=== PATIENT | female | born 1960 | race Caucasian/White ===

== ENCOUNTER 2022-12-11 11:02 | Inpatient (IN) | payer SELFPAY ==
[2022-12-11] MEDS ORDERED: NA CHLORIDE 0.9% 1,000 ML ONE (11:30)
[2022-12-11] MEDS ORDERED: ASPIRIN 81 MG CHEWABLE TABLET ONE (11:30)
[2022-12-11 11:39] LABS: Hematocrit 38.5 % (36.0-45.0); Lymphocytes % 48.9 % (15.3-44.8); MPV 7.8 fL (7.6-11.3); RBC Red Blood Cell Count 4.43 M/uL (3.86-4.86)
[2022-12-11 11:46] LABS: Specific Gravity < 1.005 (1.005-1.030); Urine Bilirubin NEGATIVE (Negative); Urine Blood Negative (Negative); Urine Clarity Clear (Clear); Urine Color Colorless (Yellow); Urine Glucose NEGATIVE (Negative); Urine Protein NEGATIVE (Negative); Urine Urobilinogen Normal (Normal); Urine pH 6.5 (5.0-7.0)
[2022-12-11 11:58] LABS: Albumin 3.5 g/dL (3.4-5.0); Bilirubin Direct 0.1 mg/dL (0-0.2); Bilirubin Total 0.4 mg/dL (0.2-1.0); Magnesium 2.2 mg/dL (1.6-2.4); Potassium 3.9 mEq/L (3.5-5.1); Protein, Total 7.3 g/dL (6.4-8.2); Troponin High Sensitivity 6.8 pg/mL (<58.9)
[2022-12-11] MEDS ORDERED: PANTOPRAZOLE 40 MG INJ ONE (12:11)
[2022-12-11] MEDS ORDERED: HEPARIN 5000 UNIT/ML 1 ML VIAL ONE (12:11)
[2022-12-11] MEDS ORDERED: METOPROLOL TAR 50 MG TAB ONE (12:11)
[2022-12-11] MEDS ORDERED: HEPARIN/D5W 25,000 UNIT/500 ML BAG IV ONE (12:11)
--- NOTE | 2022-12-11 12:39 | RAD REPORT ---
EXAM DESCRIPTION: RAD - Chest Single View - 12/11/2022 12:31 pm CLINICAL HISTORY: CHEST PAIN Chest pain. COMPARISON: No comparisons FINDINGS: Portable technique limits examination quality. The lungs are grossly clear. The heart is normal in size. No displaced fractures. IMPRESSION: No acute intrathoracic process suspected.
--- NOTE | 2022-12-11 12:51 | EDPHYS ---
Physician Documentation [facility] Name: Josephine Nichols Age: 62 yrs Sex: Female : 1960 Arrival Date: 12/11/2022 Time: 11:02 Bed 17 Private MD: ED Physician Darien White HPI: 12/11 12:47 This 62 yrs old Female presents to ER via Ambulatory with complaints of Chest prashant Pain. 12:47 The patient or guardian reports chest pain that is located primarily in the substernal prashant area. Onset: 2 day(s) ago. The pain does not radiate. Associated signs and symptoms: Pertinent positives: shortness of breath. The chest pain is described as aching, a pressure. Duration: The patient or guardian reports multiple episodes, that are intermittent. Modifying factors: The symptoms are alleviated by nothing. the symptoms are aggravated by exertion. Severity of pain: At its worst the pain was moderate in the emergency department the pain has improved moderately. The patient has not experienced similar symptoms in the past. Historical: - Allergies: 11:19 No Known Allergies; ld1 - Home Meds: 11:19 atorvastatin oral [Active]; ld1 - PMHx: 11:19 Hypertensive disorder; Hypercholesterolemia; Anxiety; ld1 - PSHx: 11:19 section; ld1 - Immunization history:: Adult Immunizations up to date, Client reports receiving the 2nd dose of the Covid vaccine. - Social history:: Smoking status: Patient denies any tobacco usage or history of. Patient/guardian denies using alcohol. ROS: 12:47 Constitutional: Negative for fever, chills, and weight loss, Eyes: Negative for injury, prasahnt pain, redness, and discharge, ENT: Negative for injury, pain, and discharge, Neck: Negative for injury, pain, and swelling, Respiratory: Negative for shortness of breath, cough, wheezing, and pleuritic chest pain, Abdomen/GI: Negative for abdominal pain, nausea, vomiting, diarrhea, and constipation, Back: Negative for injury and pain, : Negative for injury, bleeding, discharge, and swelling, MS/Extremity: Negative for injury and deformity, Skin: Negative for injury, rash, and discoloration, Neuro: Negative for headache, weakness, numbness, tingling, and seizure, Psych: Negative for depression, anxiety, suicide ideation, homicidal ideation, and hallucinations, Allergy/Immunology: Negative for hives, rash, and allergies, Endocrine: Negative for neck swelling, polydipsia, polyuria, polyphagia, and marked weight changes, Hematologic/Lymphatic: Negative for swollen nodes, abnormal bleeding, and unusual bruising. 12:47 Cardiovascular: Positive for chest pain. Exam: 12:47 Constitutional: This is a well developed, well nourished patient who is awake, alert, prashant and in no acute distress. Head/Face: Normocephalic, atraumatic. Eyes: Pupils equal round and reactive to light, extra-ocular motions intact. Lids and lashes normal. Conjunctiva and sclera are non-icteric and not injected. Cornea within normal limits. Periorbital areas with no swelling, redness, or edema. ENT: Nares patent. No nasal discharge, no septal abnormalities noted. Tympanic membranes are normal and external auditory canals are clear. Oropharynx with no redness, swelling, or masses, exudates, or evidence of obstruction, uvula midline. Mucous membranes moist. Neck: Trachea midline, no thyromegaly or masses palpated, and no cervical lymphadenopathy. Supple, full range of motion without nuchal rigidity, or vertebral point tenderness. No Meningismus. Chest/axilla: Normal chest wall appearance and motion. Nontender with no deformity. No lesions are appreciated. Cardiovascular: Regular rate and rhythm with a normal S1 and S2. No gallops, murmurs, or rubs. Normal PMI, no JVD. No pulse deficits. Respiratory: Lungs have equal breath sounds bilaterally, clear to auscultation and percussion. No rales, rhonchi or wheezes noted. No increased work of breathing, no retractions or nasal flaring. Abdomen/GI: Soft, non-tender, with normal bowel sounds. No distension or tympany. No guarding or rebound. No evidence of tenderness throughout. Back: No spinal tenderness. No costovertebral tenderness. Full range of motion. Skin: Warm, dry with normal turgor. Normal color with no rashes, no lesions, and no evidence of cellulitis. MS/ Extremity: Pulses equal, no cyanosis. Neurovascular intact. Full, normal range of motion. Neuro: Awake and alert, GCS 15, oriented to person, place, time, and situation. Cranial nerves II-XII grossly intact. Motor strength 5/5 in all extremities. Sensory grossly intact. Cerebellar exam normal. Normal gait. Psych: Awake, alert, with orientation to person, place and time. Behavior, mood, and affect are within normal limits. 12:47 ECG was reviewed by the Attending Physician. Vital Signs: 11:37 BP 148 / 72; Pulse 70; Resp 18; Temp 98.1(O); Pulse Ox 100% on R/A; Weight 74.84 kg; ld1 Height 5 ft. 6 in. ; Pain 8/10; 16:19 BP 137 / 77; Pulse 65; Resp 18; Pulse Ox 99% on R/A; ld1 11:37 Body Mass Index 26.63 (74.84 kg, 167.64 cm) ld1 11:37 Pain Scale: Adult ld1 MDM: 11:07 Patient medically screened. prashant 12:48 Differential diagnosis: abnormal EKG, acute myocardial infarction, acute pericarditis, prashant anxiety, coronary artery disease chest wall pain, Cholelithiasis costochondritis, esophagitis, gastritis, gastroesophageal reflux disease (GERD), hiatal hernia, pancreatitis, peptic ulcer disease, pericarditis, pneumonia, pneumothorax, pulmonary embolus, stable angina, thoracic aortic disection. HEART Score: History: Moderately Suspicious (1), ECG: Non specific repolarization disturbance / LBTB / PM (1), Age: > 45 and < 65 years (1), Risk Factors: > or = 3 Risk factors for atherosclerotic disease (2), [Hypercholesterolemia] [Hypertension] [+ Family HX] [Obesity] Troponin: < or = 1 x Normal Limit (0). The patient was given aspirin in the Emergency Department. SUJEY Risk Score: 1 - Three or more CAD risk factors, 1- Known CAD, 1 - ASA use in past 7 days. Data reviewed: vital signs, nurses notes, lab test result(s), EKG, radiologic studies, plain films. Management of patient was discussed with the following: Hospitalist: dr sandoval for dr arreola. 12/11 11:08 Order name: Basic Metabolic Panel; Complete Time: 12:21 [facility] 12/11 11:08 Order name: CBC with Diff; Complete Time: 12:21 [facility] 12/11 11:08 Order name: LFT's; Complete Time: 12:21 [facility] 12/11 11:08 Order name: Magnesium; Complete Time: 12:21 prashant 12/11 11:08 Order name: NT PRO-BNP; Complete Time: 12:21 prashant 12/11 11:08 Order name: PT-INR; Complete Time: 12:21 prashant 12/11 11:08 Order name: Troponin HS; Complete Time: 12:21 prashant 12/11 11:08 Order name: Lipase; Complete Time: 12:21 prashant 12/11 11:08 Order name: Urinalysis w/ reflexes; Complete Time: 12:21 prashant 12/11 12:08 Order name: Ptt, Activated; Complete Time: 12:21 ld1 12/11 15:47 Order name: Hemoglobin A1c EDMS 12/11 15:47 Order name: Lipid Profile EDMS 12/11 15:49 Order name: Magnesium EDMS 12/11 15:49 Order name: Phosphorus EDMS 12/11 15:49 Order name: T4 Free EDMS 12/11 15:49 Order name: Thyroid Stimulating Hormone EDMS 12/11 15:49 Order name: Urinalysis w/ reflexes EDMS 12/11 15:49 Order name: CBC with Automated Diff EDMS 12/11 15:49 Order name: CBC with Automated Diff EDMS 12/11 15:49 Order name: Comprehensive Metabolic Panel EDMS 12/11 15:49 Order name: Comprehensive Metabolic Panel EDMS 12/11 15:51 Order name: Troponin High Sensitivity EDMS 12/11 15:51 Order name: Troponin High Sensitivity EDMS 12/11 15:51 Order name: Troponin High Sensitivity EDMS 12/11 11:08 Order name: XRAY Chest (1 view) [facility] 12/11 15:51 Order name: Echo with Doppler EDMS 12/11 11:08 Order name: EKG; Complete Time: 11:09 [facility] 12/11 15:49 Order name: Heart Healthy EDMS 12/11 11:08 Order name: Cardiac monitoring; Complete Time: 11:19 prashant 12/11 11:08 Order name: EKG - Nurse/Tech; Complete Time: 11:19 prashant 12/11 11:08 Order name: IV Saline Lock; Complete Time: 11:37 prashant 12/11 11:08 Order name: Labs collected and sent; Complete Time: 11:37 prashant 12/11 11:08 Order name: O2 Per Protocol; Complete Time: 11:19 prashant 12/11 11:08 Order name: O2 Sat Monitoring; Complete Time: 11:19 prashant EC:47 Rate is 71 beats/min. Rhythm is regular. QRS [place] is Normal. CA interval is normal. QT prashant interval is normal. No Q waves. T waves are Normal. No ST changes noted. Clinical impression: NSR w/ Non-specific ST/T Changes and No evidence of ischemia. Interpreted by me. Reviewed by me. Administered Medications: 11:37 Drug: NS 0.9% IV 1000 ml Route: IV; Rate: 125 ml/hr; Site: right antecubital; ld1 11:37 Drug: Aspirin PO Chewable Tablet 162 mg Route: PO; ld1 12:24 Drug: Metoprolol PO 50 mg Route: PO; ld1 12:24 Drug: Heparin (NC-Bolus No thrombolytic) - HEParin IVP 60 units/kg {Co-Signature: eh3 ld1 (Frances Prado RN).} Route: IVP; Site: right antecubital; 12:24 Drug: Pantoprazole IVP 40 mg Route: IVP; Site: right antecubital; ld1 12:25 Drug: Heparin (NC Drip) - (D5W IV 500 ml, [place] [address] units) 12 units/kg/hr ld1 {Co-Signature: eh3 (Frances Prado RN).} Route: IV; Rate: calculated rate; Site: right antecubital; 14:39 Drug: Clopidogrel PO 150 mg Route: PO; ld1 Disposition Summary: 12/11/22 12:51 Hospitalization Ordered Hospitalization Status: Observation prashant Location: Telemetry/MedSurg (observation) prashant Condition: Fair prashant Problem: new prashant Symptoms: have improved prashant Bed/Room Type: Standard prashant Provider: Doug Cuevas(12/11/22 12:51) prashant Room Assignment: 206(12/11/22 15:52) bd Diagnosis - Unstable angina prashant - Chest pain, unspecified prashant Forms: - Medication Reconciliation Form prashant - SBAR form prashant Signatures: Dispatcher [employer] EDMS Lissette Arce Corey, MD MD cha Sims, Lauren RN RN ld1 Frances Pardo RN eh3 Corrections: (The following items were deleted from the chart) 12:51 12:51 Casey Arroela cha prashant 15:52 12:51 prashant bd
--- NOTE | 2022-12-11 12:51 | ER ---
Nurse's Notes [facility] Name: Josephine Nichols Age: 62 yrs Sex: Female : 1960 Arrival Date: 12/11/2022 Time: 11:02 Bed 17 Private MD: Diagnosis: Unstable angina;Chest pain, unspecified Presentation: 12/11 11:19 Chief complaint: Patient states: Intermittent chest pain X 1 week. Pain became worse ld1 last night. Coronavirus screen: At this time, the client does not indicate any symptoms associated with coronavirus-19. Ebola Screen: No symptoms or risks identified at this time. Initial Sepsis Screen: Does the patient meet any 2 criteria? No. Patient's initial sepsis screen is negative. Does the patient have a suspected source of infection? No. Patient's initial sepsis screen is negative. Risk Assessment: Do you want to hurt yourself or someone else? Patient reports no desire to harm self or others. Onset of symptoms was December 11, 2022. 11:19 Method Of Arrival: Ambulatory ld1 11:19 Acuity: GLO 3 ld1 Triage Assessment: 11:19 General: Appears in no apparent distress. uncomfortable, Behavior is calm, cooperative, ld1 appropriate for age. Pain: Complains of pain in chest Pain does not radiate. Pain currently is 7 out of 10 on a pain scale. at worst was 10 out of 10 on a pain scale. Quality of pain is described as throbbing. EENT: No signs and/or symptoms were reported regarding the EENT system. Neuro: Level of Consciousness is awake, alert, obeys commands, Oriented to person, place, time, situation. Cardiovascular: Capillary refill < 3 seconds Patient's skin is warm and dry. Rhythm is sinus rhythm. Respiratory: Airway is patent Respiratory effort is even, unlabored. GI: Abdomen is flat, non-distended. : No signs and/or symptoms were reported regarding the genitourinary system. Derm: No signs and/or symptoms reported regarding the dermatologic system. Musculoskeletal: No signs and/or symptoms reported regarding the musculoskeletal system. Historical: - Allergies: 11: No Known Allergies; ld1 - Home Meds: : atorvastatin oral [Active]; ld1 - PMHx: 11: Hypertensive disorder; Hypercholesterolemia; Anxiety; ld1 - PSHx: 11:19 section; ld1 - Immunization history:: Adult Immunizations up to date, Client reports receiving the 2nd dose of the Covid vaccine. - Social history:: Smoking status: Patient denies any tobacco usage or history of. Patient/guardian denies using alcohol. Screenin:22 [facility] ED Fall Risk Assessment (Adult) History of falling in the last 3 months, ld1 including since admission No falls in past 3 months (0 pts). Abuse screen: Denies threats or abuse. Denies injuries from another. Nutritional screening: No deficits noted. Tuberculosis screening: No symptoms or risk factors identified. Assessment: 11:22 Reassessment: See triage assessment. ERP at bedside assessing patient. ld1 Vital Signs: 11:37 BP 148 / 72; Pulse 70; Resp 18; Temp 98.1(O); Pulse Ox 100% on R/A; Weight 74.84 kg; ld1 Height 5 ft. 6 in. ; Pain 8/10; 16:19 BP 137 / 77; Pulse 65; Resp 18; Pulse Ox 99% on R/A; ld1 11:37 Body Mass Index 26.63 (74.84 kg, 167.64 cm) ld1 11:37 Pain Scale: Adult ld1 ED Course: 11:05 Patient arrived in ED. am2 11:06 Darien White MD is Attending Physician. prashant 11:18 Maryanne Jimenez, DEZ is Primary Nurse. ld1 11:19 Arm band placed on right wrist. EKG completed in triage. Results shown to MD. ld1 11:21 Triage completed. ld1 11:22 Patient has correct armband on for positive identification. Placed in gown. Bed in low ld1 position. Call light in reach. Side rails up X2. electronic device monitor on. Pulse ox on. NIBP on. Door closed. Noise minimized. Warm blanket given. 11:22 No provider procedures requiring assistance completed. Patient maintains SpO2 ld1 saturation greater than 95% on room air. 11:37 Urinalysis w/ reflexes Sent. ld1 12:33 XRAY Chest (1 view) In Process Unspecified. EDMS 12:50 Casey Jacobs MD is Hospitalizing Provider. [facility] 12:51 Doug Cuevas is Hospitalizing Provider. prashant Administered Medications: 11:37 Drug: NS 0.9% IV 1000 ml Route: IV; Rate: 125 ml/hr; Site: right antecubital; ld1 11:37 Drug: Aspirin PO Chewable Tablet 162 mg Route: PO; ld1 12:24 Drug: Metoprolol PO 50 mg Route: PO; ld1 12:24 Drug: Heparin (PA-Bolus No thrombolytic) - HEParin IVP 60 units/kg {Co-Signature: 3 ld1 (Frances Prado RN).} Route: IVP; Site: right antecubital; 12:24 Drug: Pantoprazole IVP 40 mg Route: IVP; Site: right antecubital; ld1 12:25 Drug: Heparin (PA Drip) - (D5W IV 500 ml, [place] [address] units) 12 units/kg/hr ld1 {Co-Signature: eh3 (Frances Prado RN).} Route: IV; Rate: calculated rate; Site: right antecubital; 14:39 Drug: Clopidogrel PO 150 mg Route: PO; ld1 Medication: 11:22 VIS not applicable for this client. ld1 Outcome: 12:51 Decision to Hospitalize by Provider. [facility] 16:41 Patient left the ED. 3 Signatures: Dispatcher [employer] Darien Dill MD MD cha Moreno, Amanda am2 Sims, Lauren, RN RN ld1 Frances Prado RN RN eh3 Frances Prado RN eh3
[2022-12-11] MEDS ORDERED: CLOPIDOGREL 75 MG TABLET ONE (14:41)
[2022-12-11] MEDS ORDERED: ACETAMINOPHEN 325 MG TABLET PO PRN (15:41)
[2022-12-11] MEDS ORDERED: HYDROCODONE/APAP 10/325 TAB PO PRN (15:42)
[2022-12-11] MEDS ORDERED: HYDRALAZINE HCL 20 MG/ML VIAL IV PRN (15:43)
[2022-12-11] MEDS ORDERED: ONDANSETRON 4 MG/2 ML VIAL IV PRN (15:46)
--- NOTE | 2022-12-11 15:49 | P.HP ---
Certification for Inpatient Patient admitted to: Inpatient With expected LOS: >2 Midnights Patient will require the following post-hospital care: None Practitioner: I am a practitioner with admitting privileges, knowledge of patient current condition, hospital course, and medical plan of care. Services: Services provided to patient in accordance with Admission requirements found in Title 42 Section 412.3 of the Code of Federal Regulations Patient History Date of Service: 12/11/22 Reason for admission: Chest pain History of Present Illness: Patient is a 62-year-old female with a past medical history significant for hypertension, anxiety disorder, hyperlipidemia who presents with complaint of chest pain that has been ongoing intermittently for the past 3 months but became worse in the last 2 days. Patient indicated that chest pain is located in the substernal chest area. Patient rated pain as 8/10 in severity and described pain as sharp\stabbing in quality. Patient reported associated signs and symptoms of fatigue, weakness and shortness of breath with exertion. Patient denies any other signs and symptoms. Symptoms are aggravated or relieved by nothing. Patient reported that she had an abnormal stress test with her federal judge 2 weeks ago but could not follow-up for further work-up due to lack of insurance. Patient decided to present to the hospital due to worsening symptoms. - Past Medical/Surgical History -: Hypertensive disorder -: Hyperlipidemia -: Anxiety disorder -: section - Family History Family History: Reviewed- Non-Contributory - Social History Smoking Status: Never smoker Alcohol use: No CD- Drugs: No Caffeine use: No Place of Residence: Home Review of Systems General: Weakness, Other (fatigue) Eyes: Unremarkable ENT: Unremarkable Respiratory: SOB with Excertion Cardiovascular: Chest Pain Gastrointestinal: Unremarkable Genitourinary: Unremarkable Musculoskeletal: Unremarkable Integumentary: Unremarkable Neurological: Weakness Lymphatics: Unremarkable Physical Examination - Physical Exam General: Alert, In no apparent distress, Oriented x3, Cooperative HEENT: Atraumatic, PERRLA, Mucous membr. moist/pink, EOMI, Sclerae nonicteric Neck: Supple, 2+ carotid pulse no bruit, No LAD, Without JVD or thyroid abnormality Respiratory: Clear to auscultation bilaterally, Normal air movement Cardiovascular: No edema, Regular rate/rhythm, Normal S1 S2 Capillary refill: <2 Seconds Gastrointestinal: Normal bowel sounds, No tenderness Musculoskeletal: No clubbing, No swelling, No tenderness Integumentary: No rashes Neurological: Normal speech, Normal tone, Normal affect Lymphatics: No axilla or inguinal lymphadenopathy - Studies Laboratory Data (last 24 hrs) 12/11/22 11:38: APTT 28.6 12/11/22 11:31: PT 11.0, INR 1.00 12/11/22 11:31: WBC 4.00 L, Hgb 13.0, Hct 38.5, Plt Count 192 12/11/22 11:31: Sodium 139, Potassium 3.9, BUN 12, Creatinine 0.76, Glucose 91, Magnesium 2.2, Total Bilirubin 0.4, AST 17, ALT 19, Alkaline Phosphatase 75, Lipase 38 Assessment and Plan - Plan --- Chest pain. To rule out ACS. Patient reported an abnormal stress test 2 weeks ago with her federal judge. Telemetry to monitor for any significant arrhythmia. Cardiology consulted. Echocardiogram pending to assess cardiac structures and function. We will trend serial troponins--so far negative. We await further recommendation from federal judge. --Hypertension. Poorly controlled. Continue home medications and hydralazine as needed. -- Anxiety disorder. Ativan as needed. --Hyperlipidemia. Continue statin. --CKD 2. Stable. We will continue to monitor renal functions. --DVT prophylaxis with Lovenox subQ. Discharge Plan: Home Plan to discharge in: Greater than 2 days - Advance Directives Does patient have a Living Will: No Does patient have a Durable POA for Healthcare: No - Code Status/Comfort Care Code Status Assessed: Yes Physician Review: Patient Assessed, Agree with Above Assessment and Plan Critical Care: No
--- NOTE | 2022-12-11 16:10 | P.HP ---
Patient History Date of Service: 12/11/22 Physical Examination - Studies Laboratory Data (last 24 hrs) 12/11/22 11:38: APTT 28.6 12/11/22 11:31: PT 11.0, INR 1.00 12/11/22 11:31: WBC 4.00 L, Hgb 13.0, Hct 38.5, Plt Count 192 12/11/22 11:31: Sodium 139, Potassium 3.9, BUN 12, Creatinine 0.76, Glucose 91, Magnesium 2.2, Total Bilirubin 0.4, AST 17, ALT 19, Alkaline Phosphatase 75, Lipase 38 Assessment and Plan - Advance Directives Does patient have a Living Will: No Does patient have a Durable POA for Healthcare: No
[2022-12-11] MEDS ORDERED: LORazepam 2 MG/ML VIAL IV PRN (16:11)
[2022-12-11 17:00] VITALS: BMI 26.4
[2022-12-11] MEDS ORDERED: ENOXAPARIN 40 MG/0.4 ML SQ SCH (17:00)
[2022-12-11] MEDS ORDERED: HEPARIN/D5W 25,000 UNIT/500 ML BAG IV PRN (18:00)
[2022-12-11 18:05] LABS: Magnesium 2.1 mg/dL (1.6-2.4); Phosphorus 2.6 mg/dL (2.5-4.9); Thyroid Stimulating Hormone 2.45 uIU/mL (0.358-3.740)
[2022-12-12 02:37] LABS: Absolute Lymphocytes (CBC) 2.3 K/uL (0.7-4.9); Hematocrit 38.4 % (36.0-45.0); Lymphocytes % 50.4 % (15.3-44.8); MCV 87.3 fL (80-100); MPV 7.9 fL (7.6-11.3)
[2022-12-12 02:51] LABS: Albumin 3.4 g/dL (3.4-5.0); Bilirubin Total 0.4 mg/dL (0.2-1.0); Potassium 3.5 mEq/L (3.5-5.1)
[2022-12-12] MEDS ORDERED: ASPIRIN 81 MG CHEWABLE TABLET PO SCH (09:00)
[2022-12-12] MEDS ORDERED: POTASSIUM CL SA 10 MEQ TAB PO ONE (09:00)
[2022-12-12 09:16] VITALS: O2SAT 100
--- NOTE | 2022-12-12 09:49 | CON ---
Date of Consultation: 12/12/2022 Reason For Consultation: Chest pain. History Of Present Illness: is 62. Has had a history of depression and dyslipidemia for which she takes Wellbutrin and Lipitor. She is supposed to see Dr. Coppola soon, but she has not done that yet. She also has a history of hypertension, dyslipidemia, and anxiety. Comes in with chest p ain that is basically across her anterior chest from 1 side to the neck that did basically persist fo r 24-36 hours with some diaphoresis and occasional shortness of breath. No nausea, vomiting. Denied PND, orthopnea, pedal edema, palpitations, or syncope. Denied any fever or chills. Allergies: NONE. Review of Systems: Negative. Social History: Negative. Family History: Negative. Medications: Include Wellbutrin and Lipitor. Physical Examination: Vital Signs: Stable, afebrile. HEENT: Negative. Neck: Supple with no bruit. Chest: Clear. Cardiac: Normal. Abdomen: Benign. Extremities: Revealed no clubbing, cyanosis, or edema. Diagnostic Data: Normal. Impression And Plan: Atypical chest pain in a patient with multiple cardiac risk factors. She has h ypertension, dyslipidemia, both of those are controlled. Her EKG is unremarkable. I still think we should get an echocardiogram and a stress test today before she goes home to make appropriate decisio ns. Continue present regimen. Case was discussed with Dr. Cuevas. ALAINA/VIK[employer] Voice ID: [id number] Report ID: [id number]
[2022-12-12] MEDS ORDERED: REGADENOSON 0.4 MG/5 ML SYR IV ONE (10:15)
--- NOTE | 2022-12-12 12:10 | RAD REPORT ---
EXAM DESCRIPTION: NM - Rest Stress Cardiac Imaging - 12/12/2022 11:56 am CLINICAL HISTORY: Chest pain. COMPARISON: None. TECHNIQUE: The patient was administered 10. 8mCi of Tc 99m Sestamibi prior to resting SPECT imaging of the heart. The patient was then administered 31.5 mCi of Tc 99m Sestamibi following exercise or ph armacologic stress. Multiplanar SPECT images were reviewed. FINDINGS: Small area of diminished radiotracer uptake apical left ventricular myocardium probably ph ysiologic thinning. Otherwise, there is uniformity of radiotracer uptake involving the entire left ventricular myocardium on rest and stress images. The left ventricular ejection fraction equals 67% IMPRESSION: Negative for a myocardial perfusion defect
[2022-12-12 16:18] VITALS: BP 129/61; TEMP 97.7
--- NOTE | 2022-12-12 17:24 | P.DS ---
Admission Date: 12/11/22 Discharge Date: 12/12/22 Disposition: ROUTINE DISCHARGE Discharge Condition: FAIR Reason for Admission: Chest pain - Problems (1) Chest pain Current Visit: Yes Status: Acute (2) Anxiety disorder Current Visit: Yes Status: Acute (3) Hyperlipidemia Current Visit: Yes Status: Acute Brief History of Present Illness: Patient is a 62-year-old female with a past medical history significant for hypertension, anxiety disorder, hyperlipidemia who presents with complaint of chest pain that has been ongoing intermittently for the past 3 months but became worse in the last 2 days. Patient indicated that chest pain is located in the substernal chest area. Patient rated pain as 8/10 in severity and described pain as sharp\stabbing in quality. Patient reported associated signs and symptoms of fatigue, weakness and shortness of breath with exertion. Patient denies any other signs and symptoms. Symptoms are aggravated or relieved by nothing. Patient reported that she had an abnormal stress test with her lab nurse 2 weeks ago but could not follow-up for further work-up due to lack of insurance. Patient decided to present to the hospital due to worsening symptoms. Hospital Course: Patient hospitalized, troponin trended negative. Patient seen and evaluated by Cardiology, Dr. Nathan who recommended nuclear stress test. Nuclear stress test done showed no stress-induced ischemia. Dr. Nathan recommended discharge home. Patient prescribed aspirin. She had a CT chest, abdomen and pelvis done in an outside facility which showed coronary calcifications/atherosclerosis, aortic atherosclerotic disease, sclerotic bone lesion on the iliac crest, calcified liver granuloma. Patient has been informed that these findings need to be monitored. Vital Signs/Physical Exam: Temp Pulse Resp BP Pulse Ox 97.7 F 67 14 129/61 99 12/12/22 16:00 12/12/22 16:00 12/12/22 16:00 12/12/22 16:00 12/12/22 16:00 General: Alert, In no apparent distress, Oriented x3 HEENT: Mucous membr. moist/pink Neck: JVD not distended Respiratory: Clear to auscultation bilaterally, Normal air movement Cardiovascular: No edema, Regular rate/rhythm, Normal S1 S2 Gastrointestinal: Normal bowel sounds, Soft and benign, Non-distended Musculoskeletal: No swelling Integumentary: No cyanosis Neurological: Normal strength at 5/5 x4 extr Laboratory Data at Discharge: WBC 4.60 thou/uL (4.3-10.9) 12/12/22 02:20 Hgb 13.0 g/dL (12.0-15.0) 12/12/22 02:20 Hct 38.4 % (36.0-45.0) 12/12/22 02:20 Plt Count 182 thou/uL (152-406) 12/12/22 02:20 PT 11.0 SECONDS (9.5-12.5) 12/11/22 11:31 INR 1.00 12/11/22 11:31 APTT 40.8 SECONDS (24.3-36.9) H 12/12/22 14:29 Sodium 139 mEq/L (136-145) 12/12/22 02:20 Potassium 3.5 mEq/L (3.5-5.1) 12/12/22 02:20 BUN 9 mg/dL (7-18) 12/12/22 02:20 Creatinine 0.72 mg/dL (0.55-1.02) 12/12/22 02:20 Glucose 92 mg/dL (74-106) 12/12/22 02:20 Phosphorus 2.6 mg/dL (2.5-4.9) 12/11/22 17:09 Magnesium 2.1 mg/dL (1.6-2.4) 12/11/22 17:09 Total Bilirubin 0.4 mg/dL (0.2-1.0) 12/12/22 02:20 AST 19 U/L (15-37) 12/12/22 02:20 ALT 21 U/L (13-56) 12/12/22 02:20 Alkaline Phosphatase 73 U/L (45-117) 12/12/22 02:20 Triglycerides 71 mg/dL (<150) 12/11/22 17:09 Cholesterol 155 mg/dL (<200) 12/11/22 17:09 HDL Cholesterol 67 mg/dL (40-60) H 12/11/22 17:09 Cholesterol/HDL Ratio 2.31 12/11/22 17:09 Lipase 38 U/L (13-75) 12/11/22 11:31 Home Medications: Atorvastatin Calcium 20 mg PO BEDTIME 12/11/22 buPROPion HCL [Wellbutrin Xl] 150 mg PO DAILY 12/11/22 Aspirin Chewable [Aspirin Chewable*] 81 mg PO DAILY #30 tab.chew 12/12/22 New Medications: Aspirin Chewable [Aspirin Chewable*] 81 mg PO DAILY #30 tab.chew Diet: AHA Activity: Ad tanner Followup: Brennen Nathan MD [ACTIVE - CAN ADMIT] - (Within 4 weeks. ) NONE,NONE [Primary Care Provider] - Time spent managing pt's care (in minutes): 36
--- NOTE | 2022-12-13 05:53 | EKG ---
Test Date: 2022-12-11 Test Time: 11:15:56 Parachute Rigger: Lj ALVAREZ MEASUREMENT RESULTS: Intervals: Rate: 71 SC: 144 QRSD: 96 QT: 412 QTc: 447 [place]: P: 58 SC: 144 QRS: 18 T: -10 INTERPRETIVE STATEMENTS: Normal sinus rhythm Cannot rule out Inferior infarct, age undetermined Abnormal ECG Compared to ECG 09/30/2007 06:23:06 No significant changes Electronically Signed On 12-13-22 05:49:05 CDT by Brennen Nathan
--- NOTE | 2022-12-13 07:07 | TREADPHA ---
DX: CHEST PAIN Date of Study: 12/12/22 Ht: 5' 6 " Wt: 164 lb 0 oz Consulting Physician: KEENA MEDICATIONS: NORCO, ASPIRIN, HEPARIN, APRESOLINE, ATIVAN HISTORY: 62 YEAR OLD FEMALE, COMPLAINTS OF CHEST PAIN. HISTORY: HLD, ANXIETY, STRESS, LUNG ISSUE, NON DRINKER, NON SMOKER. PHYSICIAL EXAMINATION: RESTING B.P.: 151/74 RESTING H.R.: 65 RESTING EKG: NORMAL SINUS RHYTHM PROTOCOL: LEXISCAN EXERCISE TIME: 3:30 B.P. AT PEAK STRESS: 140/75 IMPRESSION: LEXISCAN INJECTED, FOLLOWED BY CARDIOLITE PER PROTOCOL, SEE NUCLEAR MEDICINE REPORT. NO SUPRA VENTRICULAR TACHYCARDIA, VENTRICUALR TACHYCARDIA, PREMATURE VENTRICULAR COMPLEXES. CHEST PAIN 3-4/10 ON PAIN SCALE REPORTED IN RECOVERY. NO EKG CHANGES OF ISCHEMIA WITH LEXISCAN.
== END 2022-12-12 17:58 | disposition home or self-care (01) | DRG 313 ==
LOC: ER 11:02 → ERHOLD 15:41 → 2ND 16:28
PROVIDERS: ADMIT Internal Medicine; ATTEND Internal Medicine
DX: R07.89 Other chest pain (principal); F41.9 Anxiety disorder, unspecified; I12.9 Hypertensive chronic kidney disease with stage 1 through stage 4 chronic kidney disease, or unspecified chronic kidney disease; N18.2 Chronic kidney disease, stage 2 (mild); E78.00 Pure hypercholesterolemia, unspecified; Z79.82 Long term (current) use of aspirin; Z79.899 Other long term (current) drug therapy
CPT/HCPCS: 36415; 71045; 78452; 80048; 80053; 80061; 80076; 81003; 83036; 83690; 83735; 83880; 84100; 84439; 84443; 84484; 85025; 85610; 85730; 93005; 93017; 96374; 96375; 99285; A9500; C9113; J1644; J2785; J7030